=== PATIENT | male | born 2000 | race Caucasian/White ===

== ENCOUNTER 2023-08-05 21:20 | Outpatient (CLI) | payer OTHER ==
--- NOTE | 2023-08-07 11:17 | Ultrasound Report ---
PROCEDURE: Abdomen Limited INDICATIONS: CHEST PAIN TECHNIQUE: Real-time focused scanning was performed of the abdomen, with image documentation. COMPARISONS: None. FINDINGS: Liver: The liver measures 17.1 cm in length and demonstrates increased echogenicity throughout. Gallbladder: The gallbladder wall measures 2.9 mm in diameter. No stones, sludge, pericholecystic flu id or sonographic Nieto sign. Biliary ducts: Intrahepatic bile ducts are non-dilated. Extrahepatic bile duct caliber measures 3.5 mm. Normal is 6-7 mm or less in diameter, or 10 mm or less post-cholecystectomy. Pancreas: Visualized portions of the pancreas are sonographically normal. Right kidney: Normal in size and echotexture. Right kidney measures 10.6 cm long. No hydronephrosis or nephrolithiasis. No solid masses. No complex renal cystic lesions which require follow-up. Aorta: Visualized aorta is normal in caliber at less than 3 cm. IVC: Intrahepatic inferior vena cava is patent. Miscellaneous: No free abdominal fluid. IMPRESSION: 1. Markedly increased hepatic echogenicity suggesting hepatic steatosis although other sources of hep atocellular dysfunction cannot be excluded. 2. No cholelithiasis or findings to suggest choledocholithiasis or acute cholecystitis. Reviewed by: Aundrea Brown MD on 08/07/2023 11:15 AM PDT Approved by: Aundrea Brown MD on 08/07/2023 11:15 AM PDT Station ID: [id number]
== END 2023-08-05 21:21 | disposition home or self-care (01) ==
LOC: DI 21:20 → EDBD 22:00
PROVIDERS: ATTEND General Practice
DX: R07.9 Chest pain, unspecified (principal); R93.2 Abnormal findings on diagnostic imaging of liver and biliary tract